=== PATIENT | female | born 1990 | race Caucasian/White ===

== ENCOUNTER 2017-10-02 08:25 | Emergency (ER) | payer OTHER ==
[~2017-10-02] VITALS: Ht 154.9 cm; Wt 83.9 kg
[~2017-10-02 08:25] MED LIST: CIPROFLOXACIN500 M1 PO; DIPHENOXYLATE/A1 TA1 PO; FLAGYL500 MG PO; ONDANSETRON HCL4 M2 PO; PAXIL20 MG PO; PREDNISONE 10 M10 MG PO
[2017-10-02] MEDS ORDERED: ZOLOFT25 MG PO (08:47)
[2017-10-02 08:48] LABS: ABSOLUTE EOSINOPHILS 0.3 thou/uL (0.0-0.7); ABSOLUTE LYMPHOCYTES 2.6 thou/uL (0.8-5.3); ABSOLUTE MONOCYTES 0.6 thou/uL (0.0-1.2); BASOPHILS 0.4 %; EOSINOPHILS 3.1 %; HEMATOCRIT 36.2 % (37.0-47.0); HEMOGLOBIN 12.4 gm/dL (12.0-15.0); LYMPHOCYTES 24.7 %; MCH 30.7 pg (26.0-34.0); MCHC 34.2 g/dL (28.0-37.0); MCV 89.8 fL (80.0-100.0); MONOCYTES 5.9 %; MPV 8.9 fl. (7.2-11.1); NUCLEATED RBCS 0 /100WBC; PLATELET COUNT* 274 thou/uL (150-400); POLYS 65.9 %; RBC 4.03 mil/uL (4.20-5.00); RDW-CV 12.9 % (10.5-14.5); WBC 10.6 thou/uL (4.0-11.0)
[2017-10-02 08:54] LABS: CALCIUM 8.9 mg/dL (8.5-10.1); CREATININE 0.6 mg/dL (0.6-1.3); POTASSIUM 3.7 mmol/L (3.5-5.1)
[2017-10-02 09:04] LABS: ALBUMIN 2.7 g/dL (3.4-5.0); TOTAL BILIRUBIN 0.3 mg/dL (<0.1-1.0); TOTAL PROTEIN 6.8 g/dL (6.4-8.2)
[2017-10-02 09:15] LABS: URINE BILIRUBIN NEGATIVE (Negative); URINE BLOOD 3+ (Negative); URINE CLARITY CLEAR; URINE COLOR YELLOW; URINE GLUCOSE-RANDOM NEGATIVE (Negative); URINE KETONES TRACE (Negative); URINE LEUKOCYTES-REFLEX NEGATIVE (Negative); URINE NITRITE-REFLEX NEGATIVE (Negative); URINE PROTEIN NEGATIVE (Negative); URINE SPECIFIC GRAVITY 1.025 (1.005-1.030); URINE UROBILINOGEN 0.2 E.U./dl (0.2-1.0)
[2017-10-02 09:23] LABS: CASTS None Seen /LPF (None Seen); CRYSTALS None Seen /LPF (None Seen); MUCUS 4-6 Moderate strn/LPF (None Seen); SQUAMOUS 4-10 Moderate /LPF (0-3); URINE WBC-REFLEX 0-5 Rare /HPF (0-5)
[2017-10-02] MEDS ORDERED: NORCO 5-325 TA1 EACH PO (12:19)
[2017-10-02] MEDS ORDERED: FLOMAX0.4 MG PO (12:19)
[2017-10-02 12:27] VITALS: BP 103/56
== END 2017-10-02 12:28 | disposition home or self-care (01) ==
LOC: M.ERS 08:25
PROVIDERS: Personal Emergency Response Attendant
DX: O26.892 Other specified pregnancy related conditions, second trimester (principal); Z3A.16 16 weeks gestation of pregnancy; N23 Unspecified renal colic

== ENCOUNTER 2018-09-12 22:47 | Emergency (ER) | payer OTHER ==
[~2018-09-12] VITALS: Ht 154.9 cm; Wt 81.7 kg
[~2018-09-12 22:47] MED LIST changes: +FLOMAX0.4 MG PO; +NORCO 5-325 TA1 EACH PO; +ZOLOFT25 MG PO
[2018-09-12] MEDS ORDERED: DICLOXACILLIN500 MG (23:00)
[2018-09-12 23:28] LABS: HEMATOCRIT 34.4 % (37.0-47.0); HEMOGLOBIN 11.4 gm/dL (12.0-15.0); MCH 29.6 pg (26.0-34.0); MCHC 33.2 g/dL (28.0-37.0); MCV 89.3 fL (80.0-100.0); MPV 8.9 fl. (7.2-11.1); NUCLEATED RBCS 0 /100WBC; PLATELET COUNT* 259 thou/uL (150-400); RBC 3.85 mil/uL (4.20-5.00); RDW-CV 13.5 % (10.5-14.5); WBC 10.2 thou/uL (4.0-11.0)
[2018-09-12 23:31] LABS: URINE BILIRUBIN NEGATIVE (Negative); URINE BLOOD 1+ (Negative); URINE CLARITY CLEAR; URINE COLOR YELLOW; URINE GLUCOSE-RANDOM NEGATIVE (Negative); URINE KETONES TRACE (Negative); URINE LEUKOCYTES-REFLEX NEGATIVE (Negative); URINE NITRITE-REFLEX NEGATIVE (Negative); URINE PROTEIN TRACE (Negative); URINE SPECIFIC GRAVITY 1.025 (1.005-1.030); URINE UROBILINOGEN 0.2 E.U./dl (0.2-1.0)
[2018-09-12 23:43] LABS: ALBUMIN 3.1 g/dL (3.4-5.0); CALCIUM 8.6 mg/dL (8.5-10.1); CREATININE 0.8 mg/dL (0.6-1.3); POTASSIUM 3.3 mmol/L (3.5-5.1); TOTAL BILIRUBIN 0.2 mg/dL (<0.1-1.0)
[2018-09-12 23:54] LABS: SQUAMOUS 4-10 Moderate /LPF (0-3)
[2018-09-12 23:55] LABS: CASTS None Seen /LPF (None Seen); CRYSTALS None Seen /LPF (None Seen); MUCUS 4-6 Moderate strn/LPF (None Seen); URINE RBC 3-10 Few /HPF (0-2); URINE WBC-REFLEX None Seen /HPF (0-5)
[2018-09-13] MEDS ORDERED: HYDROCODON-ACE1 EAC7 PO (01:08)
[2018-09-13] MEDS ORDERED: BENTYL 20 MG TA20 M1 PO (01:08)
[2018-09-13 01:13] LABS: ABSOLUTE BASOPHILS 0.1 thou/uL (0.0-0.2); ABSOLUTE EOSINOPHILS 0.2 thou/uL (0.0-0.7); ABSOLUTE LYMPHOCYTES 1.5 thou/uL (0.8-5.3); ABSOLUTE MONOCYTES 0.4 thou/uL (0.0-1.2); PLATELET ESTIMATE ADEQUATE
[2018-09-13 01:50] VITALS: BP 98/56
== END 2018-09-13 01:50 | disposition home or self-care (01) ==
LOC: M.ERS 22:47
PROVIDERS: Personal Emergency Response Attendant
DX: R50.9 Fever, unspecified (principal); E86.0 Dehydration; N64.4 Mastodynia